=== PATIENT | male | born 1970 | race Caucasian/White ===

== ENCOUNTER 2016-07-31 22:01 | Emergency (ER) | payer MEDICAID ==
[2016-07-31 22:01] VITALS: BMI 34.4
[2016-07-31 22:25] VITALS: BP 127/78; PULSE 78; RESP 18; TEMP 98.3; O2SAT 97
--- NOTE | 2016-07-31 23:59 | C.PDOC ---
History Of Present Illness Patient is a 46 year old male who presents to the ER with a complaint of right lower back pain for the past few days that has worsened today. Patient states the pain worsens with movement and does not allow him to sleep properly. Patient reports having a Hx of back pain. Denies new injury, urinary or bowel incontinence, dysuria numbness or weakness. Time Seen by Provider: 07/31/16 22:45 Chief Complaint (Nursing): Back Pain History Per: Patient History/Exam Limitations: no limitations Onset/Duration Of Symptoms: Days Current Symptoms Are (Timing): Still Present Quality Of Discomfort: Unable To Describe Previous Symptoms: Back Pain Associated Symptoms: denies: Incontinence, New Weakness, New Numbness Exacerbating Factor(s): Movement Recent travel outside of the [place]: No Past Medical History Reviewed: Historical Data, Nursing Documentation, Vital Signs Vital Signs: Last Vital Signs Temp 98.3 F 07/31/16 22:24 Pulse 78 07/31/16 22:24 Resp 18 07/31/16 22:24 BP 127/78 07/31/16 22:24 Pulse Ox 97 08/01/16 01:03 - Medical History PMH: No Chronic Diseases Surgical History: No Surg Hx Family History: States: Unknown Family Hx - Social History Hx Alcohol Use: Yes (daily) Hx Substance Use: No - Immunization History Hx Tetanus Toxoid Vaccination: No Hx Influenza Vaccination: Yes Hx Pneumococcal Vaccination: No Review Of Systems Genitourinary: Negative for: Dysuria, Incontinence Musculoskeletal: Positive for: Back Pain (Right lower) Neurological: Negative for: Weakness, Numbness Physical Exam - Physical Exam Appears: Non-toxic, No Acute Distress Skin: Normal Color, Warm, Dry Head: Atraumatic, Normacephalic Eye(s): bilateral: Normal Inspection Oral Mucosa: Moist Gastrointestinal/Abdominal: Normal Exam, Soft, No Tenderness Back: No Vertebral Tenderness, Paraspinal Tenderness (Right lumbar), Straight Leg Raising (Negative) Extremity: Normal ROM (x4), No Tenderness Extremity: Bilateral: Atraumatic, Normal Color And Temperature Pulses: Left Dorsalis Pedis: Normal, Right Dorsalis Pedis: Normal Neurological/Psych: Oriented x3, Normal Speech, Normal Cognition, Normal Motor, Normal Sensation Gait: Steady ED Course And Treatment O2 Sat by Pulse Oximetry: 97 (Room air) Pulse Ox Interpretation: Normal Progress Note: Motrin administered. Reassessment Condition: Improved Disposition - Disposition Referrals: [facility] [Outside] FAMILY PROVIDER,NO [Primary Care Provider] - Disposition: HOME/ ROUTINE Disposition Time: 23:56 Condition: STABLE Additional Instructions: Take meds as prescribed Follow up in clinic Return to ER if worse Prescriptions: Cyclobenzaprine [Cyclobenzaprine HCl] 10 mg PO HS #7 tab Ibuprofen [Motrin Tab] 800 mg PO QID #20 tab Instructions: Back Pain (ED) - Clinical Impression Clinical Impression: Low back pain - Scribe Statement The provider has reviewed the documentation as recorded by the Scribe Saroj Balderrama All medical record entries made by the Scribe were at my direction and personally dictated by me. I have reviewed the chart and agree that the record accurately reflects my personal performance of the history, physical exam, medical decision making, and the department course for this patient. I have also personally directed, reviewed, and agree with the discharge instructions and disposition.
== END 2016-08-01 00:02 | disposition home or self-care (01) ==
LOC: SUPCPDRO 22:01 → C.ER 22:01
DX: M54.5 Low back pain (principal)

== ENCOUNTER 2016-10-30 10:14 | Emergency (ER) | payer MEDICAID ==
[2016-10-30 10:14] VITALS: BMI 34.4
[2016-10-30] MEDS ORDERED: Sodium Chloride 0.9% 1,000 ML IV ONE (11:16)
[2016-10-30] MEDS ORDERED: Aluminum Hydroxide/Magnesium Hydroxide Susp (30 mL) PO STA (11:16)
[2016-10-30] MEDS ORDERED: Sodium Chloride 0.9% 1,000 ML ONE (11:38)
[2016-10-30] MEDS ORDERED: Aluminum Hydroxide/Magnesium Hydroxide Susp (30 mL) ONE (11:38)
[2016-10-30 11:42] LABS: BASO % 0.6 % (0.0-2.0); EOS # 0.2 K/uL (0.0-0.7); EOS % 3.4 % (0.0-4.0); HEMATOCRIT 44.6 % (35.0-51.0); LYMPH # 2.7 K/uL (1.0-4.3); LYMPH % 47.8 % (20.0-40.0); MEAN CELL VOLUME 92.4 fL (80.0-94.0); MEAN CORPUSCULAR HGB CONC 33.6 g/dL (33.0-37.0); MEAN PLATELET VOLUME 8.4 fL (7.2-11.7); MONO # 0.5 K/uL (0.0-0.8); MONO % 8.3 % (0.0-10.0); NRBC % 0.1 % (0.0-2.0); RED CELL DISTRIBUTION WIDTH 15.1 % (11.5-14.5); WHITE BLOOD COUNT 5.7 K/uL (4.8-10.8)
[2016-10-30 11:44] LABS: RBC URINE < 1 /hpf (0-3); URINE BILIRUBIN NEGATIVE (NEGATIVE); URINE BLOOD NEGATIVE (NEGATIVE); URINE COLOR Yellow (YELLOW); URINE GLUCOSE (UA) NORMAL (Normal); URINE KETONE NEGATIVE (NEGATIVE); URINE LEUKOCYTE ESTERASE NEG Leu/uL (Negative); URINE PROTEIN NEGATIVE (NEGATIVE); URINE UROBILINOGEN NORMAL mg/dL (0.2-1.0); WBC URINE 4 /hpf (0-5)
--- NOTE | 2016-10-30 12:04 | C.PDOC ---
History Of Present Illness 46 y/o male presents to ED with complaints of abdominal pain 5/10 for 1 week with associated chills, nausea and heartburn. Patient also states he has been "having multiple bowel movements with loose stool". Patient denies fever, back pain, urinary symptoms or any other complaints at this time. Time Seen by Provider: 10/30/16 11:08 Chief Complaint (Nursing): Abdominal Pain History Per: Patient History/Exam Limitations: no limitations Onset/Duration Of Symptoms: Days Current Symptoms Are (Timing): Still Present Location Of Pain/Discomfort: Diffuse Radiation Of Pain To:: None Quality Of Discomfort: "Pain" Associated Symptoms: Chills, Nausea Exacerbating Factors: None Alleviating Factors: None Last Bowel Movement: Today Past Medical History Reviewed: Historical Data, Nursing Documentation, Vital Signs Vital Signs: Last Vital Signs Temp 98.5 F 10/30/16 10:19 Pulse 77 10/30/16 10:19 Resp 20 10/30/16 10:19 BP 123/80 10/30/16 10:19 Pulse Ox 98 10/30/16 12:14 - Medical History PMH: No Chronic Diseases Surgical History: No Surg Hx Family History: States: No Known Family Hx - Social History Hx Alcohol Use: Yes (daily) Hx Substance Use: No - Immunization History Hx Tetanus Toxoid Vaccination: No Hx Influenza Vaccination: Yes Hx Pneumococcal Vaccination: No Review Of Systems Except As Marked, All Systems Reviewed And Found Negative. Constitutional: Negative for: Fever, Chills Gastrointestinal: Positive for: Nausea, Abdominal Pain Genitourinary: Negative for: Dysuria, Frequency, Hematuria Musculoskeletal: Negative for: Back Pain Skin: Negative for: Rash Physical Exam - Physical Exam Appears: Non-toxic, No Acute Distress Skin: Normal Color, Warm, Dry, No Rash Head: Atraumatic, Normacephalic Eye(s): bilateral: Normal Inspection Oral Mucosa: Moist Neck: Normal ROM, Supple Chest: Symmetrical Cardiovascular: Rhythm Regular, No Murmur Respiratory: Normal Breath Sounds, No Rales, No Rhonchi, No Wheezing Gastrointestinal/Abdominal: Soft, No Tenderness, No Guarding, No Rebound Back: No CVA Tenderness Extremity: Normal ROM, Capillary Refill (<2 seconds) Neurological/Psych: Oriented x3 ED Course And Treatment - Laboratory Results Result Diagrams: 10/30/16 11:35 10/30/16 11:35 O2 Sat by Pulse Oximetry: 98 (RA) Pulse Ox Interpretation: Normal Medical Decision Making Medical Decision Making: Plan: * IV fluids * Pain Medication Patient feeling better, will d/c Disposition Counseled Patient/Family Regarding: Studies Performed, Diagnosis - Disposition Referrals: at [facility] [Outside] Disposition: HOME/ ROUTINE Disposition Time: 13:26 Condition: STABLE Prescriptions: Famotidine [Pepcid] 1 tab PO BID #30 tab Instructions: Gastroenteritis (ED) Forms: [employer] (Kiswahili) - POA Present On Arrival: None - Clinical Impression Clinical Impression: Gastritis, Gastroenteritis - Scribe Statement The provider has reviewed the documentation as recorded by the Scribe Severiano Rajan All medical record entries made by the Neftalyibe were at my direction and personally dictated by me. I have reviewed the chart and agree that the record accurately reflects my personal performance of the history, physical exam, medical decision making, and the department course for this patient. I have also personally directed, reviewed, and agree with the discharge instructions and disposition.
[2016-10-30 12:17] LABS: ALB/GLOB RATIO 1.2 (1.0-2.1); ALKALINE PHOSPHATASE 65 U/L (38-126); ALT/SGPT 29 U/L (21-72); AST/SGOT 25 U/L (17-59); BILIRUBIN,TOTAL 0.5 mg/dL (0.2-1.3); BLOOD UREA NITROGEN 18 mg/dL (9-20); CALCIUM 9.1 mg/dl (8.6-10.4); CARBON DIOXIDE 24 mmol/L (22-30); CHLORIDE 102 mmol/L (98-107); GFR AFRICAN-AMERICAN > 60; GLUCOSE,RANDOM 86 mg/dL (75-110); POTASSIUM 4.7 mmol/L (3.6-5.2); SODIUM 139 mmol/L (132-148); TOTAL PROTEIN 7.5 g/dL (6.3-8.3)
--- NOTE | 2016-10-30 12:19 | RAD ---
HISTORY: abd pain COMPARISON: No prior. FINDINGS: BOWEL: Normal. No obstruction. No free air. BONES: Normal. OTHER FINDINGS: None. IMPRESSION: A nonobstructive bowel gas pattern is appreciated. No gross free intraperitoneal gas.
[2016-10-30 13:41] VITALS: BP 127/81; PULSE 72; RESP 15; TEMP 98.2; O2SAT 99
== END 2016-10-30 13:42 | disposition home or self-care (01) ==
LOC: C.ER 10:14
DX: K52.9 Noninfective gastroenteritis and colitis, unspecified (principal); K29.70 Gastritis, unspecified, without bleeding
CPT/HCPCS: 74000; 80053; 80324; 80345; 80346; 80349; 80353; 80358; 80361; 81001; 83690; 83992; 85025; 96361; 96374; 96375; 99285; J2270; J2405; J7040

== ENCOUNTER 2017-02-04 16:57 | Emergency (ER) | payer MEDICAID ==
[2017-02-04 16:58] VITALS: BMI 34.4
--- NOTE | 2017-02-04 17:49 | C.PDOC ---
History Of Present Illness 47 y/o male presents to ED for evaluation of painful protruding mass to the left inguinal area for the past 2 days. Pt states that the mass developed spontaneously, without lifting heavy objects. 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 Denies n/v/d, back pain, fever, or chills. Time Seen by Provider: 02/04/17 17:34 Chief Complaint (Nursing): Groin Pain History Per: Patient History/Exam Limitations: no limitations Onset/Duration Of Symptoms: Days Current Symptoms Are (Timing): Still Present Recent travel outside of the [place]: No Additional History Per: Patient Past Medical History Reviewed: Historical Data, Nursing Documentation, Vital Signs Vital Signs: Last Vital Signs Temp 98.7 F 02/04/17 17:00 Pulse 98 H 02/04/17 17:00 Resp 16 02/04/17 17:00 BP 128/77 02/04/17 17:00 Pulse Ox 99 02/04/17 18:40 - Medical History PMH: Denies: Chronic Kidney Disease Family History: States: Unknown Family Hx - Social History Hx Alcohol Use: Yes (daily) Hx Substance Use: No - Immunization History Hx Tetanus Toxoid Vaccination: No Hx Influenza Vaccination: Yes Hx Pneumococcal Vaccination: No Review Of Systems Except As Marked, All Systems Reviewed And Found Negative. Constitutional: Negative for: Fever, Chills Cardiovascular: Negative for: Chest Pain, Palpitations Respiratory: Negative for: Cough, Shortness of Breath Gastrointestinal: Negative for: Nausea, Vomiting, Abdominal Pain Genitourinary: Positive for: Other (painful mass to left inguinal area). Negative for: Dysuria, Frequency, Hematuria Musculoskeletal: Negative for: Back Pain Neurological: Negative for: Headache, Dizziness Physical Exam - Physical Exam Appears: Non-toxic, No Acute Distress, Other (obese black male) Skin: Normal Color, Warm, Dry Head: Atraumatic, Normacephalic Eye(s): bilateral: Normal Inspection Oral Mucosa: Moist Chest: Symmetrical Cardiovascular: Rhythm Regular Respiratory: Normal Breath Sounds, No Rales, No Rhonchi, No Wheezing Gastrointestinal/Abdominal: Soft, No Tenderness Male Genital: Inguinal Tenderness (painful non-reproducible 3 x 3cm of protruding mass to left inguinal area consistent with inguinal hernia) Extremity: Normal ROM, No Pedal Edema Neurological/Psych: Oriented x3, Normal Speech ED Course And Treatment - Laboratory Results Result Diagrams: 02/04/17 18:40 Lab Interpretation: Abnormal (UA 7 WBC's) O2 Sat by Pulse Oximetry: 99 Pulse Ox Interpretation: Normal Progress Note: ice pack, toradol, morphine, LR Reevaluation Time: 18:55 Reassessment Condition: Improved Medical Decision Making Medical Decision Making: Abd & pelvis CT, blood work, UA ordered. Pt was given Morphine and Toradol. 1900: seen and d/w Dr. Irizarry- Surgical Consult- @ bedside- no appreciable hernia but pt with + persistent tender L inguinal area. Will continue to perform CT abd/pelvis and sign out to overnight MD to f/u labs and CT and Surgical Consult PRN d/w Surgical Eloy, Thang, zurdo. Disposition - Disposition Disposition Time: 19:00 Condition: GOOD Forms: [employer] (Yakut) - Clinical Impression Clinical Impression: Left inguinal pain - Scribe Statement The provider has reviewed the documentation as recorded by the Scribe Caridad Napier All medical record entries made by the Scribe were at my direction and personally dictated by me. I have reviewed the chart and agree that the record accurately reflects my personal performance of the history, physical exam, medical decision making, and the department course for this patient. I have also personally directed, reviewed, and agree with the discharge instructions and disposition. Physician Patient Turnover Patient Signed Over To: Lisa Lovell Handoff Comments: f/u CT and labs, Surg Consult PRN
[2017-02-04] MEDS ORDERED: Morphine 4 MG/ML VIAL IV STA (17:55)
[2017-02-04] MEDS ORDERED: Lactated Ringer's 1,000 ML IV ONE (17:55)
[2017-02-04] MEDS ORDERED: Iohexol 240 (50 ml) PO STA (17:57)
[2017-02-04] MEDS ORDERED: Lactated Ringer's 1,000 ML ONE (18:18)
[2017-02-04] MEDS ORDERED: Morphine 4 MG/ML VIAL ONE ×2 (18:18→21:12)
[2017-02-04] MEDS ORDERED: Iohexol 240 (50 ml) ONE (18:19)
[2017-02-04 18:44] LABS: BASO # 0.1 K/uL (0.0-0.2); BASO % 1.1 % (0.0-2.0); EOS # 0.2 K/uL (0.0-0.7); EOS % 1.9 % (0.0-4.0); HEMATOCRIT 40.3 % (35.0-51.0); LYMPH # 2.8 K/uL (1.0-4.3); LYMPH % 26.8 % (20.0-40.0); MEAN CELL VOLUME 92.8 fL (80.0-94.0); MEAN CORPUSCULAR HEMOGLOBIN 31.8 pg (27.0-31.0); MEAN CORPUSCULAR HGB CONC 34.2 g/dL (33.0-37.0); MEAN PLATELET VOLUME 8.2 fL (7.2-11.7); MONO # 0.8 K/uL (0.0-0.8); MONO % 7.5 % (0.0-10.0); NRBC % 0.1 % (0.0-2.0); RED CELL DISTRIBUTION WIDTH 14.3 % (11.5-14.5); WHITE BLOOD COUNT 10.4 K/uL (4.8-10.8)
[2017-02-04 18:45] LABS: RBC URINE 3 /hpf (0-3); URINE BACTERIA RARE (<OCC); URINE BILIRUBIN NEGATIVE (NEGATIVE); URINE BLOOD NEGATIVE (NEGATIVE); URINE COLOR Yellow (YELLOW); URINE GLUCOSE (UA) NORMAL (Normal); URINE KETONE TRACE mg/dL (NEGATIVE); URINE LEUKOCYTE ESTERASE TRACE Leu/uL (Negative); URINE PROTEIN 1+ mg/dL (NEGATIVE); URINE UROBILINOGEN NORMAL mg/dL (0.2-1.0); WBC URINE 7 /hpf (0-5)
[2017-02-04 18:56] LABS: ALB/GLOB RATIO 1.1 (1.0-2.1); BILIRUBIN,TOTAL 0.6 mg/dL (0.2-1.3); CALCIUM 7.7 mg/dl (8.6-10.4); GFR AFRICAN-AMERICAN > 60; GLUCOSE,RANDOM 90 mg/dL (75-110); TOTAL PROTEIN 7.8 g/dL (6.3-8.3)
[2017-02-04 18:59] LABS: ALKALINE PHOSPHATASE 64 U/L (38-126); ALT/SGPT 25 U/L (21-72); AST/SGOT 27 U/L (17-59); BLOOD UREA NITROGEN 17 mg/dL (9-20); CARBON DIOXIDE 26 mmol/L (22-30); CHLORIDE 101 mmol/L (98-107); POTASSIUM 3.7 mmol/L (3.6-5.2); SODIUM 135 mmol/L (132-148)
[2017-02-04 19:39] VITALS: RESP 18
[2017-02-04] MEDS ORDERED: Iodixanol 320 MG/ML 100 ML BOTTLE IV ONE (20:21)
--- NOTE | 2017-02-04 21:27 | CT ---
EXAM: CT Abdomen and Pelvis With Intravenous Contrast EXAM DATE/TIME: Exam ordered 02/04/2017 5:58 PM CLINICAL HISTORY: 47 years old, male; Pain; Abdominal pain; Localized; Left lower quadrant (llq); Additional info: 2 d llq tender irreducable mass ? linguinal hernia TECHNIQUE: Axial computed tomography images of the abdomen and pelvis with intravenous contrast. All CT scans at this facility use one or more dose reduction techniques, viz.: automated exposure control; ma/kV adjustment per patient size (including targeted exams where dose is matched to indication; i.e. head); or iterative reconstruction technique. Coronal and sagittal reformatted images were created and reviewed. CONTRAST: 100 mL of [id number] administered intravenously. COMPARISON: No relevant prior studies available. FINDINGS: Lower thorax: Groundglass nodule is noted in the lateral basal segment of the left lower lobe measuring 4 mm. (Series 2 image 3). A 3 mm groundglass nodule is noted in the anterior basal segment of the left lower lobe (series 2 image 5). A patchy area of consolidation with irregular borders is noted in the posterior basal segment of the left lower lobe. There is a small hiatal hernia. . ABDOMEN: Liver: A 6 mm low density lesion is noted in the anterior inferior segment of the right lobe of the liver. It has a density reading of 40 5H. A second subcentimeter lesion is noted within the liver adjacent to the gallbladder. It measures less than 3 mm. . Gallbladder and bile ducts: Unremarkable. No calcified stones. No ductal dilation. Pancreas: Unremarkable. No mass. No ductal dilation. Spleen: Unremarkable. No splenomegaly. Adrenals: Unremarkable. No mass. Kidneys and ureters: Simple cyst is noted in the lower pole of the right kidney measuring a centimeter. A 1 cm simple cyst in the upper lobe pole the left kidneyNo hydronephrosis. Stomach and bowel: Unremarkable. No obstruction. No mucosal thickening. Appendix: No findings to suggest acute appendicitis. PELVIS: Bladder: Unremarkable. No mass. Reproductive: The prostate measures 3.4 x 4.3 by 4 cm. ABDOMEN and PELVIS: Intraperitoneal space: Unremarkable. No free air. No significant fluid collection. Bones/joints: No acute fracture. No dislocation. Soft tissues: There is a small umbilical hernia containing fat. There is a small right inguinal hernia containing fat.Within the subcutaneous soft tissues lateral to the the left spermatic cord there is a small fluid collection measuring 1.5 x 1.2 by 1.2 cm.. There is rim enhancement. A fluid collection is approximately 3 mm deep to the skin surface. Vasculature: Unremarkable. No abdominal aortic aneurysm. Lymph nodes: The 1.5 cm enhancing lymph node is noted in the left groin. IMPRESSION: 1. Small abscess noted lateral to the left spermatic cord structures. This may represent an infected hair follicle. No hernia on the left. 2. Small lateral hernia containing fat noted in the right inguinal canal. 3. Bilateral renal cysts. 4. Low density lesions noted within the liver not meeting CT criteria for simple cysts. For patients with low to average risk of malignancy, no further follow-up is necessary. For patients with high risk of malignancy (known malignancy that can metastasize or other risk factors), recommend follow-up abdominal CT or MR in 6 months. 5. Small hiatal hernia. 6. Patchy irregular appearing area of consolidation noted at the left lung base with small groundglass pulmonary nodules in the left lower lobe. The nodules could be inflammatory in nature. Neoplasm is not excluded. Followup to resolution is recommended. Images were attached to this report and are available at [email or web address]
[2017-02-04 22:28] VITALS: BP 134/87; PULSE 63; TEMP 98.9; O2SAT 97
== END 2017-02-04 22:28 | disposition home or self-care (01) ==
LOC: C.ER 16:57
DX: R10.32 Left lower quadrant pain (principal); L02.214 Cutaneous abscess of groin; L73.9 Follicular disorder, unspecified
CPT/HCPCS: 74177; 80053; 81001; 83690; 85025; 96361; 96374; 96375; 99284; J0690; J1885; J2270; J7120; Q9966; Q9967

== ENCOUNTER 2017-06-07 18:58 | Emergency (ER) | payer MEDICAID ==
[2017-06-07 18:58] VITALS: BMI 34.4
[2017-06-07] MEDS ORDERED: Tmp-Smz 800 mg-160 mg DS Tab PO SCH (20:00)
[2017-06-07] MEDS ORDERED: Tmp-Smz 800 mg-160 mg DS Tab ONE (20:05)
[2017-06-07] MEDS ORDERED: Tmp-Smz 800 mg-160 mg DS Tab PO STA (20:12)
--- NOTE | 2017-06-07 20:37 | C.PDOC ---
History Of Present Illness 47 year old male presents to the ER with a complaint of a painful red lumps to the right chest, left groin, and in the left ear for the past 2 days. Patient has a Hx of similar in the past. Denies fever or chills. Time Seen by Provider: 06/07/17 19:25 Chief Complaint (Nursing): Abnormal Skin Integrity History Per: Patient History/Exam Limitations: no limitations Onset/Duration Of Symptoms: Days Current Symptoms Are (Timing): Still Present Location Of Injury: Right: Chest, Left: Head (In ear), Thigh (Left groin) Recent travel outside of the [place]: No Past Medical History Reviewed: Historical Data, Nursing Documentation, Vital Signs Vital Signs: Last Vital Signs Temp 97.2 F L 06/07/17 20:43 Pulse 81 06/07/17 20:43 Resp 20 06/07/17 20:43 BP 139/70 06/07/17 20:43 Pulse Ox 99 06/07/17 23:27 Family History: States: Unknown Family Hx - Social History Hx Alcohol Use: Yes (daily) Hx Substance Use: No - Immunization History Hx Tetanus Toxoid Vaccination: No Hx Influenza Vaccination: No Hx Pneumococcal Vaccination: No Review Of Systems Constitutional: Negative for: Fever, Chills ENT: Positive for: Other (Bump in left inner ear) Skin: Positive for: Other (Bump on right chest, left groin) Physical Exam - Physical Exam Appears: Non-toxic, No Acute Distress Skin: Warm, Dry, No Rash Head: Atraumatic, Normacephalic Eye(s): bilateral: Normal Inspection Ear(s): Left: Other (draining abscess), Right: Normal Oral Mucosa: Moist Neck: Normal ROM, Supple Chest: Other (Right chest with 1cm area of erythema and tenderness, non fluctuance or induration) Cardiovascular: Rhythm Regular Respiratory: Normal Breath Sounds, No Rales, No Rhonchi, No Wheezing Male Genital: Other (1.5cm abscess to left groin with drainage, swelling, and tenderness.) Extremity: Normal ROM, No Swelling Neurological/Psych: Oriented x3, Normal Speech, Normal Motor Gait: Steady ED Course And Treatment O2 Sat by Pulse Oximetry: 99 (room air) Pulse Ox Interpretation: Normal Medical Decision Making Medical Decision Making: Evidence of staph vs early abscess, abscess is already draining, no need for I& D at this time, will discharge home on keflex and bactrim and advise to follow up with PMD or return if symptoms worsen. Disposition - Disposition Referrals: [facility] [Outside] Disposition: HOME/ ROUTINE Disposition Time: 20:34 Condition: GOOD Additional Instructions: Apply warm compresses to area TID. Take antibiotics until completed. Return if worsened. 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 - Scribe Statement The provider has reviewed the documentation as recorded by the Scribe Saroj Balderrama All medical record entries made by the Neftalyibeddie were at my direction and personally dictated by me. I have reviewed the chart and agree that the record accurately reflects my personal performance of the history, physical exam, medical decision making, and the department course for this patient. I have also personally directed, reviewed, and agree with the discharge instructions and disposition.
[2017-06-07 20:44] VITALS: BP 139/70; PULSE 81; RESP 20; TEMP 97.2
[2017-06-07 23:21] VITALS: O2SAT 99
== END 2017-06-07 20:44 | disposition home or self-care (01) ==
LOC: C.ER 18:58 → SUPCPDRO 18:58 → C.ER 20:44
DX: L02.213 Cutaneous abscess of chest wall (principal); H60.02 Abscess of left external ear; L02.214 Cutaneous abscess of groin; B99.8 Other infectious disease

== ENCOUNTER 2017-06-27 21:37 | Emergency (ER) | payer MEDICAID ==
[2017-06-27 21:38] VITALS: BMI 34.4
[2017-06-27 22:02] VITALS: BP 123/74; PULSE 76; RESP 16; TEMP 98.6; O2SAT 99
--- NOTE | 2017-06-27 23:24 | C.PDOC ---
History Of Present Illness 47 year old male presents to the ED for evaluation of fever associated with sore throat and generalized body aches which began 2 days ago. Patient denies vomiting, diarrhea. Time Seen by Provider: 06/27/17 22:11 Chief Complaint (Nursing): ENT Problem History Per: Patient History/Exam Limitations: None Onset/Duration Of Symptoms: Days (2) Current Symptoms Are (Timing): Still Present Past Medical History Reviewed: Historical Data, Nursing Documentation, Vital Signs Vital Signs: Last Vital Signs Temp 98.6 F 06/27/17 21:56 Pulse 76 06/27/17 21:56 Resp 16 06/27/17 21:56 BP 123/74 06/27/17 21:56 Pulse Ox 99 06/27/17 23:24 - Medical History PMH: No Chronic Diseases Surgical History: No Surg Hx Family History: States: Unknown Family Hx - Social History Hx Alcohol Use: Yes (daily) Hx Substance Use: No - Immunization History Hx Tetanus Toxoid Vaccination: No Hx Influenza Vaccination: No Hx Pneumococcal Vaccination: No Review Of Systems Constitutional: Positive for: Fever ENT: Positive for: Throat Pain Gastrointestinal: Negative for: Nausea, Vomiting Musculoskeletal: Positive for: Other (generalized body aches ) Physical Exam - Physical Exam Appears: Non-toxic, No Acute Distress Skin: Normal Color, Warm, Diaphoretic Head: Atraumatic Eye(s): bilateral: Normal Inspection Ear(s): Bilateral: Normal Nose: Normal, No Discharge Oral Mucosa: Moist Throat: Erythema, No Exudate Neck: Supple Lymphatic: Adenopathy Chest: Symmetrical, No Deformity, No Tenderness Cardiovascular: Rhythm Regular, No Murmur Respiratory: Normal Breath Sounds, No Rales, No Rhonchi, No Wheezing Extremity: Normal ROM, Capillary Refill (less than 2 seconds ) Neurological/Psych: Oriented x3, Normal Speech, Normal Cognition ED Course And Treatment O2 Sat by Pulse Oximetry: 99 (on RA ) Pulse Ox Interpretation: Normal Medical Decision Making Medical Decision Making: Progress: Amoxicillin PO and Tylenol PO administered. Disposition - Disposition Referrals: [facility] at [facility] [Outside] Disposition: HOME/ ROUTINE Disposition Time: 23:21 Condition: GOOD Additional Instructions: FOLLOW UP WITH THE MEDICAL DOCTOR WITHIN 1-2 DAYS WITHOUT FAIL. RETURN IF WORSENED. 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 - Scribe Statement The provider has reviewed the documentation as recorded by the Scribe (Ama Napier) All medical record entries made by the Scribe were at my direction and personally dictated by me. I have reviewed the chart and agree that the record accurately reflects my personal performance of the history, physical exam, medical decision making, and the department course for this patient. I have also personally directed, reviewed, and agree with the discharge instructions and disposition.
== END 2017-06-27 23:30 | disposition home or self-care (01) ==
LOC: C.ER 21:37
DX: J02.9 Acute pharyngitis, unspecified (principal); K08.89 Other specified disorders of teeth and supporting structures; Z87.891 Personal history of nicotine dependence

== ENCOUNTER 2017-12-11 17:25 | Emergency (ER) | payer SELFPAY ==
[2017-12-11 17:25] VITALS: BMI 34.4
[2017-12-11 17:47] VITALS: BP 152/82; PULSE 88; RESP 18; TEMP 98.5; O2SAT 98
[2017-12-11] MEDS ORDERED: Tmp-Smz 800 mg-160 mg DS Tab PO STA (17:49)
--- NOTE | 2017-12-11 17:50 | C.PDOC ---
History Of Present Illness 47 year old male presents to the ED for evaluation of a painful lump on the right upper back for 3 days. Denies fever, nausea, vomiting, tingling, numbness, and any other associated symptoms. Chief Complaint (Nursing): Abnormal Skin Integrity History Per: Patient History/Exam Limitations: no limitations Onset/Duration Of Symptoms: Days Current Symptoms Are (Timing): Still Present Past Medical History Reviewed: Historical Data, Nursing Documentation, Vital Signs Vital Signs: Last Vital Signs Temp 98.5 F 12/11/17 17:46 Pulse 88 12/11/17 17:46 Resp 18 12/11/17 17:46 BP 152/82 H 12/11/17 17:46 Pulse Ox 98 12/11/17 17:46 - Medical History PMH: Denies: Chronic Kidney Disease Family History: States: Unknown Family Hx - Social History Hx Alcohol Use: Yes (daily) Hx Substance Use: No - Immunization History Hx Tetanus Toxoid Vaccination: No Hx Influenza Vaccination: No Hx Pneumococcal Vaccination: No Review Of Systems Constitutional: Negative for: Fever Gastrointestinal: Negative for: Nausea, Vomiting Skin: Positive for: Other (lump on the right upper back.) Neurological: Negative for: Weakness, Numbness, Incoordination Physical Exam - Physical Exam Appears: Well, Non-toxic Skin: Warm, Dry, Other (right scapula: early signs of abscess with surrounding erythema. 4 cm swelling over the right scapula. (+) firm induration. (-) no fluctuance. (-) no discharge.) Head: Atraumatic, Normacephalic Eye(s): bilateral: Normal Inspection Neurological/Psych: Oriented x3, Normal Speech ED Course And Treatment O2 Sat by Pulse Oximetry: 98 (RA) Pulse Ox Interpretation: Normal Medical Decision Making Medical Decision Making: Plan: -Bactrium Keflex Progress/Update: Patient stable for discharge home. Prescribed Trimethoprim and Cephalexin. Advised to follow up in the ER within 2-3 days, not to wait if symptoms worsened. Disposition - Disposition Disposition: HOME/ ROUTINE Disposition Time: 17:51 Condition: STABLE Additional Instructions: Follow up with PMD within 1-2 days. Return to ED if feel worse. If not better, come back in 2-3 days for incision and drainage of an abscess. Prescriptions: Sulfamethoxazole/Trimethoprim [Bactrim DS 800 mg-160 mg] 1 tab PO BID #14 tab Cephalexin [cephalexin] 500 mg PO Q6 #28 cap Instructions: Skin Abscess Forms: [employer] (Czech) - Clinical Impression Clinical Impression: Abscess - PA / RAILROAD HAND / Resident Statement MD/DO has reviewed & agrees with the documentation as recorded. - Scribe Statement The provider has reviewed the documentation as recorded by the Scribe (Gladys Manning) All medical record entries made by the Scribe were at my direction and personally dictated by me. I have reviewed the chart and agree that the record accurately reflects my personal performance of the history, physical exam, medical decision making, and the department course for this patient. I have also personally directed, reviewed, and agree with the discharge instructions and disposition.
[2017-12-11] MEDS ORDERED: Tmp-Smz 800 mg-160 mg DS Tab ONE (18:11)
== END 2017-12-11 18:15 | disposition home or self-care (01) ==
LOC: C.ER 17:25
DX: L02.212 Cutaneous abscess of back [any part, except buttock and flank] (principal)